=== PATIENT | male | born 1955 | race Caucasian/White ===

== ENCOUNTER 2025-07-18 15:23 | Inpatient (IN) | payer MEDICARE, MEDICAID ==
[~2025-07-18] VITALS: Ht 185.4 cm; Wt 57.6 kg
[2025-07-18 15:31] VITALS: O2SAT 96
[2025-07-18 16:34] LABS: BASOPHILS % 1.1 % (0.0-2.0); EOSINOPHILS % 2.3 % (0.0-5.0); HEMATOCRIT. 39.2 % (42.0-52.0); HEMOGLOBIN. 13.3 g/dL (14.0-18.0); LYMPHOCYTES % 20.4 % (20.0-50.0); MEAN PLATELET VOLUME 7.1 fl (7.4-10.4); MONOCYTES % 13.8 % (2.0-8.0); NEUTROPHILS % 62.4 % (40.0-76.0); PLATELET 303 x1000/uL (130-400); RED BLOOD CELL COUNT 4.18 mill/uL (4.7-6.1); RED CELL DISTRIBUTION WIDTH 14.3 % (11.6-14.6)
[2025-07-18 16:47] LABS: CREATININE 0.7 mg/dL (0.6-1.3); UREA NITROGEN BLOOD 24 mg/dL (9-23)
[2025-07-18 16:48] LABS: TROPONIN I HIGH SENSITIVITY < 4 ng/L (3.0-53)
[2025-07-18 16:49] LABS: ASPARTATE AMINOTRANSFERASE 19 IU/L (<34); BILIRUBIN DIRECT 0.1 mg/dL (<=3.0); BILIRUBIN TOTAL 0.4 mg/dL (0.1-1.0); PROTEIN TOTAL 6.8 g/dL (6.0-8.3)
[2025-07-18 19:04] LABS: TROPONIN I HIGH SENSITIVITY < 4 ng/L (3.0-53)
[2025-07-18] MEDS ORDERED: GUAIFENESIN 200MG/10ML SUGAR FREE UDC PO PRN (20:15)
[2025-07-18] MEDS ORDERED: ACETAMINOPHEN 325MG TABLET PO PRN ×2 (20:15)
[2025-07-18] MEDS ORDERED: ONDANSETRON HCL 4MG/2ML INJ IV PRN (20:15)
[2025-07-18] MEDS ORDERED: CLONIDINE 0.1MG TABLET PO PRN (20:15)
[2025-07-18] MEDS: DEXT 5%/0.9% NACL 1,000 ML IV ONE (21:10)
[2025-07-18] MEDS: CEFTRIAXONE 1GM/50ML 50 ML IV SCH (21:20)
[2025-07-18 22:37] LABS: INFLUENZA TYPE A Presumptive Negative (Pres. Neg.); INFLUENZA TYPE B Presumptive Negative (Pres. Neg.)
[2025-07-18 22:38] LABS: RESPIRATORY SYNCYTIAL VIRUS Not Detected (Not Detectd)
[2025-07-18] MEDS ORDERED: SODIUM CHLORIDE 0.9% 500 ML IV NR (23:15)
[2025-07-18] MEDS ORDERED: LORAZEPAM 2MG/ML UD SYRINGE IV PRN (23:30)
[2025-07-18] MEDS: CARBIDOPA/LEVODOPA 25/100MG TABLET PO SCH (23:34)
[2025-07-19] VITALS: BP 112/70; PULSE 64; RESP 18; TEMP 36.7; O2SAT 97
[2025-07-19] MEDS: TIMOLOL MALEATE 0.5% OPHTH DROPS 5ML EACHEYE SCH (01:35)
[2025-07-19] MEDS: LATANOPROST 0.005% OPHTH DROPS 2.5ML BOTHEYE SCH (01:35)
[2025-07-19 04:00] VITALS: BP 111/72; PULSE 58; RESP 18; TEMP 36.4; O2SAT 99
[2025-07-19 08:00] VITALS: BP 104/109; PULSE 78; RESP 19; TEMP 36.7; O2SAT 99
[2025-07-19 09:00] LABS: BASOPHILS % 0.7 % (0.0-2.0); EOSINOPHILS % 3.4 % (0.0-5.0); HEMATOCRIT. 39.5 % (42.0-52.0); HEMOGLOBIN. 13.2 g/dL (14.0-18.0); LYMPHOCYTES % 23.0 % (20.0-50.0); MEAN PLATELET VOLUME 7.2 fl (7.4-10.4); MONOCYTES % 13.9 % (2.0-8.0); NEUTROPHILS % 59.0 % (40.0-76.0); PLATELET 284 x1000/uL (130-400); RED BLOOD CELL COUNT 4.22 mill/uL (4.7-6.1); RED CELL DISTRIBUTION WIDTH 14.2 % (11.6-14.6)
[2025-07-19 09:14] LABS: CREATININE 0.6 mg/dL (0.6-1.3); TRIGLYCERIDE 58 mg/dL (0-150); UREA NITROGEN BLOOD 12 mg/dL (9-23)
[2025-07-19 09:15] LABS: LDL CHOLESTEROL 110 mg/dL (5-100)
[2025-07-19 09:16] LABS: PHOSPHORUS 2.6 mg/dL (2.5-4.9)
[2025-07-19] MEDS: PANTOPRAZOLE SODIUM 40 MG/VIAL IV SCH (09:18)
[2025-07-19 09:42] LABS: T4 FREE 1.21 ng/dL (0.89-1.76)
[2025-07-19] MEDS: ENOXAPARIN 40MG/0.4ML SYR SUBCUT SCH (09:46)
[2025-07-19] MEDS ORDERED: DOXY100T2 MT (10:04)
[2025-07-19 12:00] VITALS: BP 113/78; PULSE 53; RESP 19; TEMP 36.1; O2SAT 97
[2025-07-19 16:00] VITALS: BP 117/76; PULSE 56; RESP 19; TEMP 36.2; O2SAT 98
[2025-07-19 20:00] VITALS: BP 115/78; PULSE 66; RESP 19; TEMP 36.3; O2SAT 100
[2025-07-19] MEDS: CEFTRIAXONE 1GM/50ML 50 ML IV SCH (21:59)
[2025-07-20] VITALS: BP 96/55; PULSE 65; RESP 21; TEMP 36; O2SAT 100
[2025-07-20 04:00] VITALS: BP 133/74; PULSE 63; RESP 20; TEMP 36.2; O2SAT 98
[2025-07-20 06:38] LABS: CREATININE 0.6 mg/dL (0.6-1.3)
[2025-07-20 06:39] LABS: UREA NITROGEN BLOOD 9 mg/dL (9-23)
[2025-07-20 06:41] LABS: PHOSPHORUS 2.9 mg/dL (2.5-4.9)
[2025-07-20 06:56] LABS: BASOPHILS % 0.8 % (0.0-2.0); EOSINOPHILS % 3.9 % (0.0-5.0); HEMATOCRIT. 41.7 % (42.0-52.0); HEMOGLOBIN. 14.2 g/dL (14.0-18.0); LYMPHOCYTES % 21.7 % (20.0-50.0); MEAN PLATELET VOLUME 8.0 fl (7.4-10.4); MONOCYTES % 13.3 % (2.0-8.0); NEUTROPHILS % 60.3 % (40.0-76.0); PLATELET 263 x1000/uL (130-400); RED BLOOD CELL COUNT 4.42 mill/uL (4.7-6.1); RED CELL DISTRIBUTION WIDTH 14.1 % (11.6-14.6)
[2025-07-20 08:00] VITALS: BP 105/65; PULSE 88; RESP 16; TEMP 36.3; O2SAT 96
[2025-07-20] MEDS: DOCUSATE SODIUM 100MG CAPSULE PO PRN (09:52)
[2025-07-20 12:00] VITALS: BP 130/92; PULSE 69; RESP 17; TEMP 36.3; O2SAT 97
[2025-07-20 16:00] VITALS: BP 124/81; PULSE 70; RESP 18; TEMP 36.2; O2SAT 98
[2025-07-20] MEDS ORDERED: TIMO15DR12 EACHEYE (16:52)
[2025-07-20] MEDS ORDERED: PANT40TA51 MT (16:52)
[2025-07-20 20:00] VITALS: BP 120/80; PULSE 73; RESP 20; TEMP 36.4; O2SAT 96
[2025-07-21] VITALS: BP 91/59; PULSE 68; RESP 20; TEMP 36.1; O2SAT 95
[2025-07-21 04:00] VITALS: BP 101/67; PULSE 73; RESP 19; TEMP 36.2; O2SAT 99
[2025-07-21 08:00] VITALS: BP 101/71; PULSE 75; RESP 18; TEMP 36.6; O2SAT 96
[2025-07-21] MEDS: FAMOTIDINE 20MG/2ML VIAL IV SCH (08:48)
[2025-07-21 12:00] VITALS: BP 91/60; PULSE 81; RESP 18; TEMP 36.7; O2SAT 98
[2025-07-21 14:01] VITALS: BP 91/60; PULSE 81; RESP 18; TEMP 98
[2025-07-21 16:03] VITALS: BP 109/62; PULSE 69; RESP 18; TEMP 36.7; O2SAT 95
== END 2025-07-21 16:30 | DRG 640 ==
LOC: ER 15:23 → 6WST 17:21 → EDBEDREQTM 17:56 → EDBEDREQ 17:56 → CANRESERV 20:38 → ENRESERV 20:38 → EDBEDREQSVC 21:14 → EDBEDREQTM 21:14 → ENRESERV 21:28 → 6WST 22:43
PROVIDERS: ADMIT Internal Medicine; ATTEND Internal Medicine
DX: E86.0 Dehydration (principal); G93.41 Metabolic encephalopathy; E46 Unspecified protein-calorie malnutrition; Z68.1 Body mass index [BMI] 19.9 or less, adult; N39.0 Urinary tract infection, site not specified; G20.A1 Parkinson's disease without dyskinesia, without mention of fluctuations; R62.7 Adult failure to thrive; N40.0 Benign prostatic hyperplasia without lower urinary tract symptoms; F02.80 Dementia in other diseases classified elsewhere, unspecified severity, without behavioral disturbance, psychotic disturbance, mood disturbance, and anxiety; R29.6 Repeated falls; G40.909 Epilepsy, unspecified, not intractable, without status epilepticus; R79.89 Other specified abnormal findings of blood chemistry; K21.9 Gastro-esophageal reflux disease without esophagitis; Z74.01 Bed confinement status; Z79.899 Other long term (current) drug therapy
CPT/HCPCS: 36415; 71045; 72170; 80048; 80061; 80076; 82140; 82550; 83735; 84100; 84439; 84443; 84484; 85025; 87420; 87804; 92610; 93005; 93970; 97162; 97166; 97535; 99285; J0696; J1308; J1650; J2470